=== PATIENT | female | born 1955 | race Caucasian/White ===

== ENCOUNTER 2017-11-03 10:24 | Outpatient (CLI) | END 2017-11-03 16:46 | disposition home or self-care (01) ==

== ENCOUNTER 2017-11-25 04:32 | Inpatient (IN) | END 2017-11-29 15:15 | disposition home or self-care (01) | DRG 406 ==

== ENCOUNTER 2017-12-10 10:47 | Outpatient (CLI) | END 2017-12-10 15:54 | disposition home or self-care (01) ==